=== PATIENT | female | born 1960 | race Two or more races ===

== ENCOUNTER 2022-02-12 16:02 | Emergency (ER) | payer SELFPAY ==
[2022-02-12] VITALS (8 sets, daily range): BP systolic 114–141; BP diastolic 78–90
[~2022-02-12] VITALS: Ht 162.6 cm; Wt 84.0 kg
[~2022-02-12 16:02] MED LIST: ONDANSETRON4 MG PO; PEPCID AC20 MG PO; TRAMADOL HCL50 MG PO
[2022-02-12] MEDS ORDERED: CRESTOR10 MG PO (19:44)
[2022-02-12] MEDS ORDERED: [UNRECOGNIZED DRUG - OTHER] PO (19:46)
[2022-02-12 20:05] LABS: IMMATURE GRANULOCYTES 0.1 % (0.0-5.0); MEAN CELL VOLUME 86.3 fL CALC (80.0-100.0); MEAN CORPUSCULAR HGB 26.9 pG CALC (26.0-32.0); MEAN CORPUSCULAR HGB CONC 31.2 g/dL CAL (32.0-36.0); NEUT# 3.43 thou/uL (2.00-7.15); RED BLOOD COUNT 5.2 mill/uL (4.20-5.60); RED CELL DISTRI WIDTH 13.6 % (11.5-15.5)
[2022-02-12 20:08] LABS: HEMATOCRIT 44.9 % (37.0-47.0)
[2022-02-12 20:27] LABS: ALKALINE PHOSPHATASE 103 u/l (38-126); ANION GAP 13 (6-22 (CALC)); BUN 13 mg/dL (7-17); BUN/CREATININE RATIO 18 (12-20 (CALC)); CARBON DIOXIDE 29 mmol/l (22-30); CHLORIDE 102 mmol/l (95-108); CREATININE 0.7 mg/dL (0.5-1.0); GFR > 60 ML/MIN (>=60 (CALC)); GFR FOR AFR.AMER. > 60 ML/MIN (>=60 (CALC)); POTASSIUM 3.9 mmol/l (3.5-5.1); SGOT/AST 34 u/l (14-36); SODIUM 140 mmol/l (137-146)
[2022-02-12 20:29] LABS: D-DIMER 0.84 mg/L (0.19-0.60)
[2022-02-12 20:30] LABS: ALBUMIN 4.6 g/dL (3.2-5.0); BILIRUBIN, TOTAL 0.3 mg/dL (0.0-1.4); TOTAL PROTEIN 8.4 g/dL (6.3-8.2)
[2022-02-12 20:48] LABS: ACT PARTIAL THROMBO TIME 28.1 SECONDS (20.0-32.5); INTERNATIONAL NORMALIZED RATIO 0.9 RATIO (0.7-1.3); PROTHROMBIN TIME 9.4 SECONDS (9.0-12.5)
[2022-02-12] MEDS ORDERED: VENTOLIN HFA IN (23:24)
[2022-02-12] MEDS ORDERED: ADVAIR DISKU IN (23:24)
== END 2022-02-12 23:32 | disposition home or self-care (01) | DRG 203 ==
LOC: ED 16:02
PROVIDERS: Family Medicine
DX: J98.01 Acute bronchospasm (principal); I10 Essential (primary) hypertension

== ENCOUNTER 2022-03-15 14:39 | Emergency (ER) | payer SELFPAY ==
[~2022-03-15] VITALS: Ht 157.5 cm; Wt 83.4 kg
[~2022-03-15 14:39] MED LIST changes: +ADVAIR DISKU IN; +CRESTOR10 MG PO; +VENTOLIN HFA IN; +[UNRECOGNIZED DRUG - OTHER] PO
[2022-03-15 15:28] LABS: HEMOGLOBIN 12.9 g/dl (12.0-16.0); IMMATURE GRANULOCYTES 0.1 % (0.0-5.0); MEAN CELL VOLUME 85.8 fL CALC (80.0-100.0); MEAN CORPUSCULAR HGB CONC 31.5 g/dL CAL (32.0-36.0); NEUT# 5.56 thou/uL (2.00-7.15); RED BLOOD COUNT 4.78 mill/uL (4.20-5.60); RED CELL DISTRI WIDTH 13.5 % (11.5-15.5)
[2022-03-15 15:53] LABS: ALBUMIN 4.4 g/dL (3.2-5.0); ALKALINE PHOSPHATASE 101 u/l (38-126); BUN 19 mg/dL (7-17); BUN/CREATININE RATIO 26 (12-20 (CALC)); CHLORIDE 108 mmol/l (95-108); CREATININE 0.7 mg/dL (0.5-1.0); GFR > 60 ML/MIN (>=60 (CALC)); GFR FOR AFR.AMER. > 60 ML/MIN (>=60 (CALC)); LIPASE 60 u/l (23-300); POTASSIUM 4.1 mmol/l (3.5-5.1); SGOT/AST 30 u/l (14-36); SODIUM 139 mmol/l (137-146); TOTAL PROTEIN 7.8 g/dL (6.3-8.2)
[2022-03-15 15:56] LABS: URINE BILIRUBIN - DIPSTICK NEGATIVE (NEGATIVE); URINE BLOOD DIPSTICK LARGE (NEGATIVE); URINE COLOR YELLOW; URINE GLUCOSE - DIPSTICK NEGATIVE (NEGATIVE); URINE KETONE NEGATIVE (NEGATIVE); URINE PROTEIN - DIPSTICK 100 mg/dL (NEG-TRACE); URINE SPECIFIC GRAVITY >=1.030; URINE UROBILINOGEN - DIPSTICK 0.2 E.U./dL (0.2)
[2022-03-15 15:56] LABS: ANION GAP 14 (6-22 (CALC)); BILIRUBIN, TOTAL 0.5 mg/dL (0.0-1.4); CARBON DIOXIDE 21 mmol/l (22-30)
[2022-03-15 16:02] LABS: URINE LEUK ESTERASE MODERATE (NEGATIVE); URINE NITRITE - DIPSTICK POSITIVE (Negative)
[2022-03-15 16:05] LABS: URINE RBC 50-100 RBC/hpf (0-5); URINE SQUAMOUS EPITHELIAL CELL FEW EPI/hpf (0-FEW); URINE WBC 50-100 WBC/hpf (0-5)
[2022-03-15] MEDS ORDERED: OMNICEF300 MG PO (17:27)
[2022-03-15] MEDS ORDERED: PYRIDIUM200 MG PO (17:27)
[2022-03-15 17:42] VITALS: BP 133/68
== END 2022-03-15 17:54 | disposition home or self-care (01) | DRG 690 ==
LOC: ED 14:39
PROVIDERS: Nurse Practitioner
DX: N39.0 Urinary tract infection, site not specified (principal); I10 Essential (primary) hypertension; Z53.1 Procedure and treatment not carried out because of patient's decision for reasons of belief and group pressure

== ENCOUNTER 2022-11-30 19:55 | Emergency (ER) | payer SELFPAY ==
[2022-11-30] VITALS (12 sets, daily range): BP systolic 119–132; BP diastolic 65–90
[~2022-11-30] VITALS: Ht 157.5 cm; Wt 83.6 kg
[~2022-11-30 19:55] MED LIST changes: +OMNICEF300 MG PO; +PYRIDIUM200 MG PO
[2022-11-30 21:16] LABS: BASO% 0.4 % (0-3); EOS% 3.6 % (0-8); HEMOGLOBIN 11.7 g/dl (12.0-16.0); IMMATURE GRANULOCYTES 0.1 % (0.0-5.0); LYMPH% 31.6 % (15-41); MEAN CELL VOLUME 85.1 fL CALC (80.0-100.0); MEAN CORPUSCULAR HGB 27.7 pG CALC (26.0-32.0); MEAN CORPUSCULAR HGB CONC 32.5 g/dL CAL (32.0-36.0); MONO% 7.3 % (2-13); NEUT# 4.07 thou/uL (2.00-7.15); RED BLOOD COUNT 4.23 mill/uL (4.20-5.60); RED CELL DISTRI WIDTH 13.6 % (11.5-15.5)
[2022-11-30 21:17] LABS: URINE BILIRUBIN - DIPSTICK NEGATIVE (NEGATIVE); URINE BLOOD DIPSTICK NEGATIVE (NEGATIVE); URINE COLOR YELLOW; URINE GLUCOSE - DIPSTICK NEGATIVE (NEGATIVE); URINE KETONE NEGATIVE (NEGATIVE); URINE LEUK ESTERASE NEGATIVE (NEGATIVE); URINE PH 6.5 (4.5-8.0); URINE PROTEIN - DIPSTICK NEGATIVE (NEG-TRACE); URINE UROBILINOGEN - DIPSTICK 0.2 E.U./dL (0.2)
[2022-11-30 21:18] LABS: URINE NITRITE - DIPSTICK NEGATIVE (Negative)
[2022-11-30 21:29] LABS: ALBUMIN 4.4 g/dL (3.2-5.0); BUN 14 mg/dL (7-17); BUN/CREATININE RATIO 18 (12-20 (CALC)); CHLORIDE 105 mmol/l (95-108); CREATININE 0.8 mg/dL (0.5-1.0); GFR FOR AFR.AMER. > 60 ML/MIN (>=60 (CALC)); GFR OTHER RACES > 60 ML/MIN (>=60 (CALC)); LIPASE 101 u/l (23-300); POTASSIUM 3.6 mmol/l (3.5-5.1); SODIUM 140 mmol/l (137-146); TOTAL PROTEIN 7.6 g/dL (6.3-8.2)
[2022-11-30 21:30] LABS: ALKALINE PHOSPHATASE 261 u/l (38-126); ANION GAP 10 (6-22 (CALC)); BILIRUBIN, TOTAL 0.2 mg/dL (0.0-1.4); CARBON DIOXIDE 29 mmol/l (22-30); SGOT/AST 73 u/l (14-36)
[2022-11-30] MEDS ORDERED: MIRALAX17 GM PO (22:47)
[2022-11-30] MEDS ORDERED: CITRATE OF MEGNESIA PO (22:47)
== END 2022-11-30 23:20 | disposition home or self-care (01) | DRG 392 ==
LOC: ED 19:55
PROVIDERS: Family Medicine
DX: K59.00 Constipation, unspecified (principal); I10 Essential (primary) hypertension; J45.909 Unspecified asthma, uncomplicated; E78.00 Pure hypercholesterolemia, unspecified